=== PATIENT | female | born 1990 | race Caucasian/White ===

== ENCOUNTER 2019-01-13 17:36 | Emergency (ER) | payer BC, MEDICAID ==
[2019-01-13] MEDS ORDERED: ONDANSETRON HCL IV 4 MG/2 ML VIAL IV ONE (18:10)
[2019-01-13] MEDS ORDERED: SODIUM CHLORIDE 0.9% 500 ML IV ONE (18:10)
[2019-01-13] MEDS ORDERED: SUCRALFATE 1 G/10 ML UD PO ONE (18:11)
--- NOTE | 2019-01-13 18:15 | Emergency Department Record ---
History of Present Illness - General Chief Complaint: Abdominal Pain Stated Complaint: abd pain/can't eat Time Seen by Provider: 01/13/19 18:06 Source: Patient Mode of Arrival: Ambulatory Limitations: No limitations - History of Present Illness Initial Comments: The patient is here due to a 3 day hx of R sided AP. The pain is sharp and crampy and mainly located in the epigastric area and RUQ. Eating does seem to make the pain worse and she has had intermittent nausea and vomiting. Today she also has had mild loose stools. The patient has no hx of similar problems and her only abdominal surgery is 2 C-sections. The patient denies any fevers, chills, dysuria, or back pain. MD Complaint: Abdominal pain Onset/Timin -: Days(s) Location: Epigastric Radiation: RUQ, RLQ Severity: Moderate Severity scale (1-10): 6 Quality: Aching, Sharp Consistency: Constant, Intermittent Improves With: Nothing Worsens With: Eating Associated Symptoms: Anorexia, Diarrhea, Nausea - Related Data Patient : No Home Medications Medication Instructions Recorded Confirmed Last Taken Amitriptyline HCl [Elavil] 25 mg PO DAILY 01/13/19 01/13/19 01/12/19 Fluoxetine HCl [Prozac] 10 mg PO DAILY 01/13/19 01/13/19 01/13/19 Methocarbamol [Robaxin] 1 tab PO TID 01/13/19 01/13/19 01/13/19 Previous Rx's Medication Instructions Recorded Ondansetron [Zofran Odt] 4 mg SL .Q4-6H PRN #12 tab.rapdis 01/13/19 Sucralfate [Carafate] 1 gm PO QID #28 tablet 01/13/19 Allergies Allergy/AdvReac Type Severity Reaction Status Date / Time No Known Drug Allergies Allergy Verified 01/13/19 17:52 Travel Screening - Travel/Exposure Within Last 30 Days Have you traveled within the last 30 days?: No - Travel/Exposure Within Last Year Have you traveled outside the [place] in the last year?: No - Additonal Travel Details Have you been exposed to anyone with a communicable illness?: No - Travel Symptoms Symptom Screening: None Review of Systems Constitutional: Denies: Chills, Fever Eyes: Denies: Eye discharge ENT: Denies: Congestion Respiratory: Denies: Cough, Dyspnea Cardiovascular: Denies: Arrhythmia Endocrine: Denies: Fatigue Gastrointestinal: Reports: Abdominal pain, Nausea, Vomiting Genitourinary: Denies: Dysuria Musculoskeletal: Denies: Arthralgia, Back pain Skin: Denies: Bruising Past Medical History - SOCIAL HISTORY Smoking Status: Current every day smoker Alcohol Use: None Drug Use: None - RESPIRATORY Hx Respiratory Disorders: Yes Hx Bronchitis: Yes - CARDIOVASCULAR Hx Cardio Disorders: No - NEURO Hx Neuro Disorders: No - GI Hx GI Disorders: No - Hx Genitourinary Disorders: No - ENDOCRINE Hx Endocrine Disorders: No - MUSCULOSKELETAL Hx Musculoskeletal Disorders: Yes Hx Back Injury: Yes (fell down stairs in Nov 2014) - PSYCH Hx Psych Problems: No - HEMATOLOGY/ONCOLOGY Hx Hematology/Oncology Disorders: No Family Medical History Any Significant Family History?: No Physical Exam - General General Appearance: Alert, Oriented x3, Cooperative, No acute distress - Head Head exam: Atraumatic, Normocephalic - Eye Eye exam: Normal appearance, PERRL, EOMI - ENT Throat exam: Normal inspection. negative: Tonsillar erythema, Tonsillar exudate - Neck Neck exam: Normal inspection, Full ROM. negative: Tenderness - Respiratory Respiratory exam: Normal lung sounds bilaterally. negative: Respiratory distress - Cardiovascular Cardiovascular Exam: Regular rate, Normal rhythm, Normal heart sounds - GI/Abdominal GI/Abdominal exam: Soft, Tenderness (There is mild RUQ and epigastric tenderness.). negative: Guarding, Pulsatile mass, Rebound, Rigid - Extremities Extremities exam: Normal inspection, Full ROM, Normal capillary refill. negative: Tenderness Image of Full Body: 1 - Area of pain and tenderness. - Back Back exam: Reports: Normal inspection - Neurological Neurological exam: Alert. negative: Motor sensory deficit - Psychiatric Psychiatric exam: negative: Anxious Course Vital Signs 01/13/19 17:55 Temperature 98.5 F Pulse Rate 90 Respiratory 18 Rate Blood Pressure 115/80 Pulse Ox 98 - Reevaluation(s) Reevaluation #1: The patient is doing a lot better at this time and states the pain is pretty much gone now. Her workup has been normal including the CT scan. I did discuss the need for an abdominal US but unfortunately we are not able to perform that test over the weekend. I did offer to transfer the patient to another hospital but she states she would like to wait until Tuesday and have it done here. She is to return to the ER at noon on Tuesday for a 1pm US. On exam the patient's abdomen is very soft and nontender in all 4 quads. Her repeat temp is normal also at 98.6 orally. 01/13/19 19:51 01/13/19 19:55 Reevaluation #2: I also did discus the CT report with the patient and the need for a contrast scan as an outpatient and she will see her PCP for it. 01/13/19 19:53 Medical Decision Making - Lab Data Result diagrams: 01/13/19 18:05 01/13/19 18:05 Disposition Disposition: Discharge Clinical Impression: RUQ abdominal pain Disposition: Home, Self-Care Condition: (2) Stable Instructions: Abdominal Pain (ED) Additional Instructions: Please take the Carafate and Zofran as directed and plan on returning to the ER at noon on Tuesday for a 1pm US. Please return sooner for any worsening pain, fever, or vomiting. Please if improved see your family doctor to go over the official CT report and plan on scheduling an outpatient abdominal CT with oral and IV contrast. Prescriptions: Ondansetron [Zofran Odt] 4 mg SL .Q4-6H PRN #12 tab.rapdis PRN Reason: Nausea Sucralfate [Carafate] 1 gm PO QID #28 tablet Forms: Patient Portal Access Time of Disposition: 19:57 Quality - Quality Measures Quality Measures: N/A - Blood Pressure Screening View Details: Yes Does Patient Have Any of the Following: No Blood Pressure Classification: Pre-Hypertensive BP Reading Systolic Measurement: 115 Diastolic Measurement: 80 Screening for High Blood Pressure: < Pre-Hypertensive BP, F/U Documented > [ [id number]] Pre-Hypertensive Follow-up Interventions: Referral to alternative/primary care provider.
[2019-01-13 18:21] LABS: EOS % 4.2 % (0-6); GRAN % 45.8 % (47-80); HEMATOCRIT 45.8 % (35.0-47.0); HEMOGLOBIN 15.7 gm/dl (11.6-16.0); LYMPH % 38.3 % (16-45); MEAN CELL VOLUME 90.3 fl (81-97); MEAN CORPUSCULAR HGB CONC 34.3 g/dl (32-36); MONO % 10.7 % (0-9); PLATELET COUNT 247 K/uL (130-400); RED BLOOD COUNT 5.07 M/uL (3.80-5.40); RED CELL DISTRIBUTION WIDTH 13.2 % (11.5-14.5); WHITE BLOOD COUNT W/O DIFF 5.1 K/uL (4.2-12.2)
[2019-01-13 18:35] LABS: BLOOD UREA NITROGEN 15 mg/dL (6-20); CREATININE 0.6 mg/dL (0.5-0.9)
[2019-01-13 18:36] LABS: EST GLOMERULAR FILTRATION RATE > 60 mL/min; LIPASE 26 U/L (13-60); TOTAL PROTEIN 7.6 g/dL (6.6-8.7)
[2019-01-13 18:38] LABS: GLUCOSE,RANDOM 85 mg/dL (74-109)
[2019-01-13 18:41] LABS: ALBUMIN 4.6 g/dL (4.0-5.0); ALKALINE PHOSPHATASE 98 U/L (35-104); ALT/SGPT 60 U/L (<33); AST/SGOT 34 U/L (10.0-35.0); BILIRUBIN,DIRECT < 0.2 mg/dL (0-0.3)
[2019-01-13] MEDS ORDERED: KETOROLAC 30 MG/ML VIAL IVP ONE (19:13)
--- NOTE | 2019-01-16 06:45 | CT SCAN REPORT ---
EXAM: CT OF THE ABDOMEN AND PELVIS HISTORY: RIGHT SIDED ABDOMINAL PAIN, NAUSEA, VOMITING AND DIARRHEA. TECHNIQUE: CT of the abdomen and pelvis was performed without intravenous contrast. Comparison: None. FINDINGS: The lung bases are unremarkable. There is a 2.3 cm round lesion in the superior aspect of the liver. Unenhanced liver otherwise unremarkable. The spleen is unremarkable. No pancreatic mass or inflammatory changes seen. No adrenal lesion. There are no renal or ureteral calculi. No hydronephrosis. There is no aortic aneurysm. No periaortic mass or adenopathy. There are no dilated bowel loops. No pelvic mass, abscess, or adenopathy. No free air or free fluid. IMPRESSION: 1. NO ACUTE ABDOMINAL PROCESS. EVALUATION IS LIMITED BY THE LACK OF INTRAVENOUS CONTRAST. 2. 2.3 CM MASS IN THE UPPER ASPECT OF THE LIVER. CONTRAST ENHANCED STUDY COULD BE PERFORMED FOR FURTHER ASSESSMENT. 3. OTHERWISE, UNREMARKABLE. JOB NUMBER: [id number] MTDD
== END 2019-01-13 20:03 | disposition home or self-care (01) ==
LOC: ER 17:36
DX: R10.11 Right upper quadrant pain (principal); R19.7 Diarrhea, unspecified; R11.0 Nausea; F17.210 Nicotine dependence, cigarettes, uncomplicated
CPT/HCPCS: 99284 ×2; 96374; 96375; 83690; 85025; 80076; 80048; 84703; 74176; J1885; J2405